=== PATIENT | male | born 1960 | race Caucasian/White ===

== ENCOUNTER 2017-02-11 04:55 | Emergency (ER) | payer MEDICAID, MEDICARE, OTHER ==
[2017-02-11] MEDS ORDERED: LORazepam 2 MG/ML MDV IVPUSH ONE (04:58)
[2017-02-11] MEDS ORDERED: Metoclopramide 10 MG/2 ML SDV IVPUSH ONE (04:58)
[2017-02-11] MEDS ORDERED: Sodium Chloride 0.9% 1,000 ML IV SCH (05:00)
--- NOTE | 2017-02-11 05:06 | EDM.PDOC ---
[id number]: [facility] Time Seen by Provider: 02/11/17 05:01 Source of Information: Reports: Patient, EMS notes reviewed Exam Limitations: Reports: Intoxication (Smells strongly of alcohol) - History of Present Illness INITIAL COMMENTS - FREE TEXT/NARRATIVE: 56-year-old male brought to the ED per local ambulance. Ambulance was summoned to a local home because of a seizure. Mr. Valladares is apparently a patient of the [facility]. He has maxillary sinus cancer which apparently is in remission. . It is unclear at this time why he is in the [facility] program. He seems to be of low mental capacity. Breath smells strongly of alcohol and is some suggestion he's been drinking heavily today which is created his bizarre and abnormal behaviors. Paramedics did not identify any sign of seizure activity. They had some concerns about drug withdrawal. He answers questions appropriately on my asssessment. . States he did have Easter dinner. He admits to drinking alcohol but not to how much. He has not yet gone to bed. Apparently he had been partying with a younger woman who may or may not ,have been offering him street drugs. He apparently has not suffered any fall or trauma. He denies headache or nausea or vomiting. Denies any pain. He does exhibit bizarre behavior with raising his arms above his head in twitching of his eyes etc. on exploration of his past history he was seen through the ED on May 27 where he was identified to have extensive soft tissue mass involving the left frontal sinus that had invaded across to the right frontal sinus it also invaded the medial aspect and superior aspect of his left orbit. This was felt to represent tumor or perhaps aggressive sinus disease. There is also intracranial extension of mass by about 8 mm on the left side. He said previous left-sided craniotomy with changes of encephalomalacia in expect will more than to the left frontal horn of the lateral ventricle. Therefore he may well had a seizure. When he presented to the ED he was in the MRI suite and was felt to suffered a seizure at that date May 27. MRI of the brain had been been performed on the same date. So so he was sent to the [facility] where he underwent extensive surgery to try and remove the tumor from the left frontal sinus and from behind his left eye. 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 It is unclear at this time whether or not he said further seizure activity since surgeries. His medication lists numerous eyedrops for glaucoma. He is not on any antiseizure medications. Onset of Symptoms: Reports: today Symptom Onset Date: 02/11/17 (Fairly symptoms started within the last hour.) Duration of Symptoms: Reports: Hour(s): Severity: moderate Context, Behavioral Health: Reports: other (Suspect intoxication by alcohol and perhaps other drugs.). Denies: living situation, school/work, family dynamics Associated Symptoms: Reports: anxiety. Denies: depression, hallucinations, auditory, homicidal thoughts, hallucinations, visual, insomnia, ingestion:, paranoia, suicidal thought, other Treatments [employer]: Reports: Other (see below) (None.) - SAD Persons Scale (SPS) SPS Sex: Male SPS Age: Between 18-65 Years of Age SPS Depression: No SPS Previous Suicide Attempts: No SPS Alcohol Abuse/Drug Abuse: Yes SPS Rational Thinking Loss: Yes (Because of intoxicants.) SPS Social Support Deficit: No SPS Organized Suicide Plan: No SPS No Spouse/Significant Other: No SPS Sickness: No SPS Sad Person Scale Score: 3 - Related Data Allergies Allergy/AdvReac Type Severity Reaction Status Date / Time No Known Allergies Allergy Verified 02/11/17 05:00 Home Medications: Home Meds Acetaminophen [Mapap] 325 mg PO Q4H PRN 02/11/17 [History] Aspirin [Adult Low Dose Aspirin EC] 81 mg PO DAILY 02/11/17 [History] Bimatoprost [LUMIGAN 0.01% Ophth Soln] 1 drop EYELF BEDTIME 02/11/17 [History] Brimonidine Tartrate/Timolol [Combigan Eye Drops] 1 drop EYELF BID 02/11/17 [ History] Brinzolamide [Azopt 1% Ophth Susp] 1 drop EYELF BID 02/11/17 [History] Erythromycin Base [Erythromycin 0.5% Ophth Oint] 3.5 gm EYELF BEDTIME 02/11/17 [ History] Ibuprofen [Motrin] 200 mg PO Q4H PRN 02/11/17 [History] Loteprednol Etabonate [Lotemax] 1 drop EYELF BID 02/11/17 [History] Ondansetron [Zofran ODT] 8 mg PO Q8H PRN 02/11/17 [History] metFORMIN HCl [Metformin HCl] 500 mg PO BID 02/11/17 [History] Past Medical History - Past Health History Medical/Surgical History: Denies Medical/Surgical History HEENT History: Reports: Glaucoma (Left eye), Impaired vision (Legally blind left eye), Other (see below) (Fairly have left maxillary sinus carcinoma. This required vigorous reconstruction of the sinus removal of the tumor. It has affected his left eyesight. He has had surgery in his left eye as well. Vision is very poor in this side.) Oncologic (Cancer) History: Reports: Squamous cell carcinoma (Apparently had a form of squamous cell carcinoma involving the left frontal sinus that it invaded the retro-orbital space on the left side as well as into the right frontal sinus. Was also invading into the intracranial cavity by about 8 mm at the time of discovery May [id number].) Social & Family History - Tobacco Use Smoking Status *Q: Current Every Day Smoker Years of Tobacco use: 30 Packs/Tins Daily: 1 - Alcohol Use Days Per Week of Alcohol Use: 0 Number of Drinks Per Day: 1 Total Drinks Per Week: 0 - Recreational Drug Use Recreational Drug Use: No - Living Situation & Occupation Living situation: Reports: single Occupation: unemployed ED ROS GENERAL - Review of Systems Review Of Systems: See Below Constitutional: Reports: fatigue. Denies: fever, chills, malaise, weakness, decreased appetite, weight loss HEENT: Reports: Other (Legally blind left eye). Denies: Eye discharge, Eye pain , Glasses, Hearing loss, Nosebleed, Nose pain, Rhinitis, Sinus problem, Throat pain, Throat swelling, Vertigo Respiratory: Reports: Shortness of Breath, Cough. Denies: Wheezing, Sputum, Hemoptysis, Other Cardiovascular: Reports: Chest pain (Occasionally productive.), Lightheadedness , Palpitations (Sometimes). Denies: Blood pressure problem, Claudication, Dyspnea on exertion, Edema, Orthopnea Endocrine: Reports: fatigue, other (Fairly is a type II diabetic. Controlled with oral meds) GI/Abdominal: Denies: Abdominal pain, Anorexia, Black stool, Bloody stool, Constipation, Diarrhea, Decreased appetite, Difficulty swallowing, Distension, Flatus, Hematemesis, Hematochezia : Reports: frequency Musculoskeletal: Reports: back pain Skin: Reports: no symptoms Neurological: Reports: Dizziness, Difficulty Walking (Due to intoxication at this time), Gait Disturbance (Ataxic gait today.). Denies: Headache, Numbness, Seizure, Syncope, Tingling, Tremors, Weakness, Change in Speech Psychiatric: Reports: Agitation, Anxiety, Confusion, Mood lability. Denies: Hallucinations, Homicidal ideation, Suicidal ideation Hematologic/Lymphatic: Reports: easy bruising Immunologic: Reports: no symptoms ED EXAM, BEHAVIORAL HEALTH - Physical Exam Exam: See Below Exam Limited By: Intoxication (Strong smell of alcohol in his breath.) General Appearance: other (Left conjunctiva is extremely red and he reports recent surgery using drops in the side. He is blind in the side.) Eye Exam: right eye: normal inspection, left eye: conjunctival injection ( Severe. Legally blind in his side.), bilateral eye: nystagmus (Bilateral lateral gaze.) Ears: normal TMs Throat/Mouth: Normal inspection, Normal oropharynx, Other (Diffusely erythematous throat. Tongue is mildly dry.) Head: atraumatic, normocephalic Neck: normal inspection, supple, non-tender, full range of motion. No: carotid bruit, lymphadenopathy (L), lymphadenopathy (R) Respiratory/Chest: no respiratory distress, lungs clear, normal breath sounds, no accessory muscle use Cardiovascular: normal peripheral pulses, regular rate, rhythm, no edema, no gallop, no murmur, no rub GI/Abdominal: normal bowel sounds, soft, non tender, no organomegaly Back Exam: normal inspection, full range of motion. No: CVA tenderness (L), CVA tenderness (R) Extremities: normal inspection, normal range of motion, non-tender, no pedal edema, normal capillary refill, other (No evidence of recent fall or injuries.) Neurological: alert, normal mood/affect, CN II-XII intact, normal cognition, normal reflexes, no motor/sensory deficits. No: normal gait, oriented x 3 (Not oriented to time.) Psychiatric: alert, normal affect, restless. No: uncooperative, withdrawn, flight of ideas, homicidal thoughts, jain delusions, suicidal plan, suicidal thoughts, tangential thoughts, auditory hallucinations, visual hallucinations, grandiose thoughts, paranoid thoughts, threatening behavior, other Skin Exam: Warm, Intact, Normal color, No rash COURSE, BEHAVIORAL HEALTH COMP - Course Vital Signs: Last Vital Signs Temp 36.2 C 02/11/17 04:57 Pulse 66 02/11/17 08:30 Resp 16 02/11/17 08:30 BP 130/87 02/11/17 08:30 Pulse Ox 99 02/11/17 08:30 Orders, Labs, Meds: Laboratory Tests 02/11/17 02/11/17 02/11/17 Range/Units 05:05 05:10 05:10 WBC 10.51 H (4.23-9.07) K/mm3 RBC 5.68 (4.63-6.08) M/mm3 Hgb 15.9 (13.7-17.5) gm/L Hct 47.5 (40.1-51.0) % MCV 83.6 (79.0-92.2) fl MCH 28.0 (25.7-32.2) pg MCHC 33.5 (32.2-35.5) g/dl RDW Std Deviation 41.9 (35.1-43.9) fL Plt Count 299 (163-337) K/mm3 MPV 9.4 (9.4-12.3) fl Neutrophils % (Manual) 43 (40-60) % Band Neutrophils % 0 (0-10) % Lymphocytes % (Manual) 46 H (20-40) % Atypical Lymphs % 0 % Monocytes % (Manual) 6 (2-10) % Eosinophils % (Manual) 4 (0.8-7.0) % Basophils % (Manual) 1 (0.2-1.2) Platelet Estimate Adequate Plt Morphology Comment Normal RBC Morph Comment Normal PT (8.0-13.0) SECONDS INR Sodium 144 (136-145) mEq/L Potassium 3.7 (3.5-5.1) mEq/L Chloride 106 (98-107) mEq/L Carbon Dioxide 24 (21-32) mEq/L Anion Gap 17.7 H (5-15) BUN 10 (7-18) mg/dL Creatinine 1.0 (0.7-1.3) mg/dL Est Cr Clr Drug Dosing 88.90 mL/min Estimated GFR (MDRD) > 60 (>60) mL/min BUN/Creatinine Ratio 10.0 L (14-18) Glucose 143 H (74-106) mg/dL POC Glucose 138 H (70-105) mg/dL Calcium 9.6 (8.5-10.1) mg/dL Magnesium 2.1 (1.8-2.4) mg/dl Total Bilirubin 0.3 (0.2-1.0) mg/dL AST 11 L (15-37) U/L ALT 21 (16-63) U/L Alkaline Phosphatase 105 (46-116) U/L Troponin I (0.00-0.056) ng/mL C-Reactive Protein 0.3 (<1.0) mg/dL Total Protein 7.8 (6.4-8.2) g/dl Albumin 4.3 (3.4-5.0) g/dl Globulin 3.5 gm/dL Albumin/Globulin Ratio 1.2 (1-2) Urine Color (Yellow) Urine Appearance (Clear) Urine pH (5.0-8.0) Ur Specific [place] (1.005-1.030) Urine Protein (Negative) Urine Glucose (UA) (Negative) Urine Ketones (Negative) Urine Occult Blood (Negative) Urine Nitrite (Negative) Urine Bilirubin (Negative) Urine Urobilinogen (0.2-1.0) Ur Leukocyte Esterase (Negative) Urine Opiates Screen (NEGATIVE) Ur Buprenorphine Scrn (NEGATIVE) Ur Oxycodone Screen (NEGATIVE) Urine Methadone Screen (NEGATIVE) Ur Propoxyphene Screen (NEGATIVE) Ur Barbiturates Screen (NEGATIVE) Ur Tricyclics Screen (NEGATIVE) Ur Phencyclidine Scrn (NEGATIVE) Ur Amphetamine Screen (NEGATIVE) U Methamphetamines Scrn (NEGATIVE) U Benzodiazepines Scrn (NEGATIVE) U Cocaine Metab Screen (NEGATIVE) U Marijuana (THC) Screen (NEGATIVE) Ethyl Alcohol 0.11 (0.00) gm% Ketones (0.0-0.3) mM 02/11/17 02/11/17 02/11/17 Range/Units 05:10 05:10 05:10 WBC (4.23-9.07) K/mm3 RBC (4.63-6.08) M/mm3 Hgb (13.7-17.5) gm/L Hct (40.1-51.0) % MCV (79.0-92.2) fl MCH (25.7-32.2) pg MCHC (32.2-35.5) g/dl RDW Std Deviation (35.1-43.9) fL Plt Count (163-337) K/mm3 MPV (9.4-12.3) fl Neutrophils % (Manual) (40-60) % Band Neutrophils % (0-10) % Lymphocytes % (Manual) (20-40) % Atypical Lymphs % % Monocytes % (Manual) (2-10) % Eosinophils % (Manual) (0.8-7.0) % Basophils % (Manual) (0.2-1.2) Platelet Estimate Plt Morphology Comment RBC Morph Comment PT 9.7 (8.0-13.0) SECONDS INR 0.90 Sodium (136-145) mEq/L Potassium (3.5-5.1) mEq/L Chloride (98-107) mEq/L Carbon Dioxide (21-32) mEq/L Anion Gap (5-15) BUN (7-18) mg/dL Creatinine (0.7-1.3) mg/dL Est Cr Clr Drug Dosing mL/min Estimated GFR (MDRD) (>60) mL/min BUN/Creatinine Ratio (14-18) Glucose (74-106) mg/dL POC Glucose (70-105) mg/dL Calcium (8.5-10.1) mg/dL Magnesium (1.8-2.4) mg/dl Total Bilirubin (0.2-1.0) mg/dL AST (15-37) U/L ALT (16-63) U/L Alkaline Phosphatase (46-116) U/L Troponin I (0.00-0.056) ng/mL C-Reactive Protein (<1.0) mg/dL Total Protein (6.4-8.2) g/dl Albumin (3.4-5.0) g/dl Globulin gm/dL Albumin/Globulin Ratio (1-2) Urine Color Yellow (Yellow) Urine Appearance Clear (Clear) Urine pH 7.0 (5.0-8.0) Ur Specific [place] 1.015 (1.005-1.030) Urine Protein Negative (Negative) Urine Glucose (UA) Negative (Negative) Urine Ketones Negative (Negative) Urine Occult Blood Trace-intact H (Negative) Urine Nitrite Negative (Negative) Urine Bilirubin Negative (Negative) Urine Urobilinogen 0.2 (0.2-1.0) Ur Leukocyte Esterase Negative (Negative) Urine Opiates Screen Negative (NEGATIVE) Ur Buprenorphine Scrn Negative (NEGATIVE) Ur Oxycodone Screen Negative (NEGATIVE) Urine Methadone Screen Negative (NEGATIVE) Ur Propoxyphene Screen Negative (NEGATIVE) Ur Barbiturates Screen Negative (NEGATIVE) Ur Tricyclics Screen Negative (NEGATIVE) Ur Phencyclidine Scrn Negative (NEGATIVE) Ur Amphetamine Screen Negative (NEGATIVE) U Methamphetamines Scrn Negative (NEGATIVE) U Benzodiazepines Scrn Negative (NEGATIVE) U Cocaine Metab Screen Negative (NEGATIVE) U Marijuana (THC) Screen Negative (NEGATIVE) Ethyl Alcohol (0.00) gm% Ketones (0.0-0.3) mM 02/11/17 02/11/17 Range/Units 05:10 05:10 WBC (4.23-9.07) K/mm3 RBC (4.63-6.08) M/mm3 Hgb (13.7-17.5) gm/L Hct (40.1-51.0) % MCV (79.0-92.2) fl MCH (25.7-32.2) pg MCHC (32.2-35.5) g/dl RDW Std Deviation (35.1-43.9) fL Plt Count (163-337) K/mm3 MPV (9.4-12.3) fl Neutrophils % (Manual) (40-60) % Band Neutrophils % (0-10) % Lymphocytes % (Manual) (20-40) % Atypical Lymphs % % Monocytes % (Manual) (2-10) % Eosinophils % (Manual) (0.8-7.0) % Basophils % (Manual) (0.2-1.2) Platelet Estimate Plt Morphology Comment RBC Morph Comment PT (8.0-13.0) SECONDS INR Sodium (136-145) mEq/L Potassium (3.5-5.1) mEq/L Chloride (98-107) mEq/L Carbon Dioxide (21-32) mEq/L Anion Gap (5-15) BUN (7-18) mg/dL Creatinine (0.7-1.3) mg/dL Est Cr Clr Drug Dosing mL/min Estimated GFR (MDRD) (>60) mL/min BUN/Creatinine Ratio (14-18) Glucose (74-106) mg/dL POC Glucose (70-105) mg/dL Calcium (8.5-10.1) mg/dL Magnesium (1.8-2.4) mg/dl Total Bilirubin (0.2-1.0) mg/dL AST (15-37) U/L ALT (16-63) U/L Alkaline Phosphatase (46-116) U/L Troponin I < 0.017 (0.00-0.056) ng/mL C-Reactive Protein (<1.0) mg/dL Total Protein (6.4-8.2) g/dl Albumin (3.4-5.0) g/dl Globulin gm/dL Albumin/Globulin Ratio (1-2) Urine Color (Yellow) Urine Appearance (Clear) Urine pH (5.0-8.0) Ur Specific [place] (1.005-1.030) Urine Protein (Negative) Urine Glucose (UA) (Negative) Urine Ketones (Negative) Urine Occult Blood (Negative) Urine Nitrite (Negative) Urine Bilirubin (Negative) Urine Urobilinogen (0.2-1.0) Ur Leukocyte Esterase (Negative) Urine Opiates Screen (NEGATIVE) Ur Buprenorphine Scrn (NEGATIVE) Ur Oxycodone Screen (NEGATIVE) Urine Methadone Screen (NEGATIVE) Ur Propoxyphene Screen (NEGATIVE) Ur Barbiturates Screen (NEGATIVE) Ur Tricyclics Screen (NEGATIVE) Ur Phencyclidine Scrn (NEGATIVE) Ur Amphetamine Screen (NEGATIVE) U Methamphetamines Scrn (NEGATIVE) U Benzodiazepines Scrn (NEGATIVE) U Cocaine Metab Screen (NEGATIVE) U Marijuana (THC) Screen (NEGATIVE) Ethyl Alcohol (0.00) gm% Ketones 0.16 (0.0-0.3) mM Medications Discontinued Medications Generic Name Dose Route Start Last Admin Trade Name Freq PRN Reason Stop Dose Admin Sodium Chloride 1,000 mls @ 250 mls/hr 02/11/17 05:00 02/11/17 06:05 Normal Saline IV 500 mls/hr ASDIRECTED LESLY Infusion Sodium Chloride 1,000 mls @ 500 mls/hr 02/11/17 06:00 Normal Saline IV 02/11/17 07:59 ONETIME ONE Lorazepam 1.5 mg 02/11/17 04:58 02/11/17 05:15 Ativan IVPUSH 02/11/17 04:59 1.5 mg ONETIME ONE Administration Metoclopramide HCl 7.5 mg 02/11/17 04:58 02/11/17 05:15 Reglan IVPUSH 02/11/17 04:59 7.5 mg ONETIME ONE Administration Re-Assessment/Re-Exam: 56-year-old male brought to the ED per local ambulance after being summoned to the way home with reported male having a seizure. No seizure activity was appreciated by travel med surg rn staff. He appreciated him to be intoxicated by alcohol and perhaps other intoxicants. His behavior was quite audible. There is some suspicion that he may be going through withdrawal. However he has fresh alcohol on his breath. He appears primarily intoxicated by alcohol. Fairly is a type II diabetic controlled with metformin. Plan bedside blood sugar be done. IV will be normal saline at 150 mils per hour . Given Ativan 1.5 mg IV and Reglan 7.5 mg IV. Routine lab draw. Your will be collected for drug screen. I dug into his past history and he has had it sounds like squamous cell carcinoma of that started in his left frontal sinus that invaded across into the right frontal sinus as well as into the intracranial vault through the superior aspect of the frontal sinus and also inferiorly into the retro-orbital space on the left side. He went to the [facility] for definitive surgery back in early May of 2015 when the mass was discovered. At present he has glaucoma of the left eye and is legally blind. He is not listed to be on any antiseizure medications. Will write with results of blood tests. Re-Assessment/Re-Exam Date: 02/11/17 (0600 hours labs are back revealing normal white count at 10.51 with 43% neutrophils and 46% lymphocytes. Hemoglobin is 15.9 hematocrit of 47.5 suggesting a mild hemoconcentration component. Platelets 209,000. Chemistry is sodium 144 potassium 3.7. Portable 6 bicarbonate is 24 anion gap is elevated at 17.7 glucose 143. Blood alcohol currently a 0.11 g percent. Urinalysis is normal other than a few red cells. Urine drug screen is negative. Patient appears to be simply overtired and intoxicated by alcohol. I will increase his IV to 500 mils per hour in an effort to improve his anion gap. He will remain in the emergency room until he is walking and talking which will be 3 hours or so) Departure - Departure Time of Disposition: 08:30 Disposition: Home, Self-Care 01 Condition: fair Clinical Impression: Alcoholic ketosis Acute alcohol intoxication Qualifiers: Complication of substance-induced condition: uncomplicated Qualified Code(s): F10.120 - Alcohol abuse with intoxication, uncomplicated Instructions: Alcohol Intoxication, [id number] Referrals: PCP,Not In Area [Primary Care Provider] - Forms: ED Department Discharge Additional Instructions: Evaluation in the emergency room this morning due to to her complaints of some chest discomfort and then apparently passing out while in the seated position in the wee hours of the morning. The annulus was summoned because of suspect seizure activity by your friends. However no seizure activity is evident. It appears that he simply passed out after standing up so late in the morning and with alcohol on board. The only abnormalities identified were an elevated blood alcohol level and evidence of a metabolic acidosis from alcohol use. You were treated in the ED with intravenous fluids to provide rehydration and medication to settle the stomach. Home to rest sleep and advise no further alcohol use for at least the next 3 days. may resume normal diet when able. Plenty of fluids today such as Gatorade or Powerade to maintain hydration. May continue all current medications.
[2017-02-11] MEDS ORDERED: Sodium Chloride 0.9% 1,000 ML IV ONE (06:00)
[2017-02-11 08:56] VITALS: BP 130/87
== END 2017-02-11 08:45 | disposition home or self-care (01) ==
LOC: JD.ED 04:55
DX: F10.120 Alcohol abuse with intoxication, uncomplicated (principal); F17.210 Nicotine dependence, cigarettes, uncomplicated; E88.89 Other specified metabolic disorders; Z79.82 Long term (current) use of aspirin; Z79.899 Other long term (current) drug therapy; Z79.84 Long term (current) use of oral hypoglycemic drugs
CPT/HCPCS: 36415; 80053; 80306; 81003; 82009; 82962; 83735; 84484; 85025; 85610; 86140; 96361; 96374; 96375; 99285; G0480; J2060; J2765; J7040; 99284

== ENCOUNTER 2017-03-26 12:47 | Emergency (ER) | payer OTHER ==
[2017-03-26] MEDS ORDERED: LORazepam 2 MG/ML MDV IVPUSH ONE (12:52)
[2017-03-26] MEDS ORDERED: levETIRAcetam 500 MG in Sodium Chloride 0.9% 100 ML IV ONE (12:53)
--- NOTE | 2017-03-26 12:56 | EDM.PDOC ---
ED HPI GENERAL MEDICAL PROBLEM - General Chief Complaint: Neuro Symptoms/Deficits Stated Complaint: [facility] Time Seen by Provider: 03/26/17 12:51 Source of Information: Reports: Patient, EMS History Limitations: Reports: Altered Mental Status - History of Present Illness INITIAL COMMENTS - FREE TEXT/NARRATIVE: 56-year-old male brought to the ED from [facility] where he was in the CT scanner suite having maxillofacial sinuses performed. Apparently suffered a eizure but no one was able to describe what happened exactly. The patient of course has no recollection of what has happened to him. This suggests a grand mal convulsion occurred. Paramedics were called and they identified him to be twitching bilaterally. No focal neurological deficit. He is postictal for the first 15-20 minutes before he did speak. He remains mildly confused on initial assessment. He has no recollection of what has happened to him. He has no history of seizure disorder. Onset: Sudden Onset Date: 03/26/17 Onset Time: 12:25 Duration: Minutes:, Resolved Prior to Arrival Location: Reports: Generalized Severity: Moderate Improves with: Reports: None Context: Denies: Activity, Exercise, Lifting, Sick Contact, Trauma, Other Associated Symptoms: Reports: Confusion, Headaches, Malaise, Weakness. 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: Other (see below) - Related Data Allergies Allergy/AdvReac Type Severity Reaction Status Date / Time No Known Allergies Allergy Verified 02/11/17 05:00 Home Meds: Home Meds Acetaminophen [Mapap] 325 mg PO Q4H PRN 02/11/17 [History] Aspirin [Adult Low Dose Aspirin EC] 81 mg PO DAILY 02/11/17 [History] Bimatoprost [LUMIGAN 0.01% Ophth Soln] 1 drop EYELF BEDTIME 02/11/17 [History] Brimonidine Tartrate/Timolol [Combigan Eye Drops] 1 drop EYELF BID 02/11/17 [ History] Brinzolamide [Azopt 1% Ophth Susp] 1 drop EYELF BID 02/11/17 [History] Erythromycin Base [Erythromycin 0.5% Ophth Oint] 3.5 gm EYELF BEDTIME 02/11/17 [ History] Ibuprofen [Motrin] 200 mg PO Q4H PRN 02/11/17 [History] Loteprednol Etabonate [Lotemax] 1 drop EYELF BID 02/11/17 [History] Ondansetron [Zofran ODT] 8 mg PO Q8H PRN 02/11/17 [History] metFORMIN HCl [Metformin HCl] 500 mg PO BID 02/11/17 [History] levETIRAcetam [Keppra] 500 mg PO BID #60 tablet 03/26/17 [Rx] Past Medical History - Past Health History Medical/Surgical History: Denies Medical/Surgical History HEENT History: Reports: Glaucoma, Impaired Vision, Other (See Below) Endocrine/Metabolic History: Reports: Diabetes, Type II Oncologic (Cancer) History: Reports: Squamous Cell Carcinoma Other Oncologic History: sinus - Past Surgical History HEENT Surgical History: Reports: Naso-Sinus Surgery Social & Family History - Tobacco Use Smoking Status *Q: Current Every Day Smoker Years of Tobacco use: 30 Packs/Tins Daily: 1 - Alcohol Use Days Per Week of Alcohol Use: 0 Number of Drinks Per Day: 1 Total Drinks Per Week: 0 - Recreational Drug Use Recreational Drug Use: No - Living Situation & Occupation Living situation: Reports: Single Occupation: Unemployed ED ROS GENERAL - Review of Systems Review Of Systems: See Below Constitutional: Reports: Malaise, Weakness, Fatigue. Denies: Fever, Chills, Weight Loss HEENT: Reports: No Symptoms Respiratory: Reports: No Symptoms Cardiovascular: Reports: No Symptoms Endocrine: Reports: Fatigue GI/Abdominal: Reports: No Symptoms : Reports: No Symptoms Musculoskeletal: Reports: No Symptoms Skin: Reports: No Symptoms Neurological: Reports: No Symptoms Psychiatric: Reports: No Symptoms Hematologic/Lymphatic: Reports: No Symptoms - Physical Exam Exam: See Below Exam Limited By: Altered Mental Status (Mildly confused.) General Appearance: WD/WN, No Apparent Distress, Other Eye Exam: Bilateral Eye: Normal Inspection, PERRL Throat/Mouth: Normal Inspection, Normal Lips, Normal Oropharynx, Other Head Exam: Atraumatic, Normocephalic (Notice that he bit his tongue.) Neck: Normal Inspection, Supple, Non-Tender, Full Range of Motion Respiratory/Chest: No Respiratory Distress, Lungs Clear, Normal Breath Sounds, No Accessory Muscle Use, Wheezing Cardiovascular: Normal Peripheral Pulses (Occasional expiratory wheezes.), Regular Rate, Rhythm, No Edema, No Gallop, No Murmur GI/Abdominal: Normal Bowel Sounds, Soft, Non-Tender, No Organomegaly Neuro Exam (Abbreviated): CN II-XII Intact, Normal Reflexes, No Motor/Sensory Deficits, Other ([id number]. Normal attending psychiatrist strength normal upper and lower motor power tone and strength.). No: Oriented, Normal Cognition (Mildly continue) DTR: 0: Achilles (R), Achilles (L), 1+: Patella (R), Patella (L), 2+: Bicep (R) , Bicep (L) Back Exam: Normal Inspection, Full Range of Motion Extremities: Normal Inspection, Normal Range of Motion, Non-Tender, Normal Capillary Refill Psychiatric: Normal Affect, Normal Mood Skin Exam: Warm, Dry, Intact, Normal Color, No Rash Course - Vital Signs Last Recorded V/S: Last Vital Signs Temp 37.1 C 03/26/17 12:52 Pulse 63 03/26/17 12:52 Resp 16 03/26/17 12:52 BP 142/97 H 03/26/17 12:52 Pulse Ox 94 L 03/26/17 12:52 - Orders/Labs/Meds Orders: Active Orders 24 hr Category Date Time Status Dextrose 5%-0.9% NaCl [Dextrose 5%-Normal Saline] 1,000 Med 03/26/17 13:00 Active ml IV ASDIRECTED Medication Orders Dextrose/Sodium Chloride (Dextrose 5%-Normal Saline) 1,000 mls @ 150 mls/hr IV ASDIRECTED LESLY Last Admin: 03/26/17 13:48 Dose: 150 mls/hr Labs: Laboratory Tests 03/26/17 03/26/17 Range/Units 13:15 13:15 WBC 8.88 (4.23-9.07) K/mm3 RBC 5.68 (4.63-6.08) M/mm3 Hgb 15.7 (13.7-17.5) gm/L Hct 47.1 (40.1-51.0) % MCV 82.9 (79.0-92.2) fl MCH 27.6 (25.7-32.2) pg MCHC 33.3 (32.2-35.5) g/dl RDW Std Deviation 41.2 (35.1-43.9) fL Plt Count 285 (163-337) K/mm3 MPV 9.7 (9.4-12.3) fl Neutrophils % (Manual) 70 H (40-60) % Band Neutrophils % 0 (0-10) % Lymphocytes % (Manual) 18 L (20-40) % Atypical Lymphs % 0 % Monocytes % (Manual) 6 (2-10) % Eosinophils % (Manual) 6 (0.8-7.0) % Basophils % (Manual) 0 L (0.2-1.2) Platelet Estimate Adequate RBC Morph Comment Normal Sodium 140 (136-145) mEq/L Potassium 3.9 (3.5-5.1) mEq/L Chloride 105 (98-107) mEq/L Carbon Dioxide 24 (21-32) mEq/L Anion Gap 14.9 (5-15) BUN 13 (7-18) mg/dL Creatinine 1.1 (0.7-1.3) mg/dL Est Cr Clr Drug Dosing 78.35 mL/min Estimated GFR (MDRD) > 60 (>60) mL/min BUN/Creatinine Ratio 11.8 L (14-18) Glucose 124 H (74-106) mg/dL Calcium 9.1 (8.5-10.1) mg/dL Total Bilirubin 0.6 (0.2-1.0) mg/dL AST 10 L (15-37) U/L ALT 18 (16-63) U/L Alkaline Phosphatase 101 (46-116) U/L Total Protein 7.7 (6.4-8.2) g/dl Albumin 4.0 (3.4-5.0) g/dl Globulin 3.7 gm/dL Albumin/Globulin Ratio 1.1 (1-2) Ethyl Alcohol 0.00 (0.00) gm% Meds: Medications Generic Name Dose Route Start Last Admin Trade Name Freq PRN Reason Stop Dose Admin Dextrose/Sodium Chloride 1,000 mls @ 150 mls/hr 03/26/17 13:00 03/26/17 13:48 Dextrose 5%-Normal Saline IV 150 mls/hr ASDIRECTED LESLY Administration Discontinued Medications Generic Name Dose Route Start Last Admin Trade Name Freq PRN Reason Stop Dose Admin Levetiracetam 500 mg/ Sodium 105 mls @ 400 mls/hr 03/26/17 12:53 03/26/17 13: 19 Chloride IV 03/26/17 13:07 400 mls/hr ONETIME ONE Administration Lorazepam 1 mg 03/26/17 12:52 03/26/17 13:16 Ativan IVPUSH 03/26/17 12:53 1 mg ONETIME ONE Administration - Radiology Interpretation Free Text/Narrative:: 56-year-old male sent to the ED from [facility] where apparently he suffered a grand mal convulsion while in the CT scanner suite. He was having CT of his maxillofacial sinuses due to concern for possible malignancy in his nose. Apparently he has not however had a seizure before. He was postictal for a good 15-20 minutes before he can speak and interact with the paramedics normally. They tried to establish an IV x3 but were unsuccessful he is therefore not received any medications. Unclear how long the seizure lasted. 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 Therefore it is a mistake that there was a problem with his nose. Lab work sent over was reviewed and is all within normal limits. This included a blood sugar of 117 although he is on metformin for type 2 diabetes control. Plan :Ativan 1 mg IV followed by Keppra [address] of the brain and maxillofacial sinuses will be done in the ED. - Re-Assessments/Exams Free Text/Narrative Re-Assessment/Exam: 03/26/17 14:25 labs are completely normal including liver function studies. CT of the head reveals a destructive soft tissue mass noted on previous stays within the medial left orbit and within the frontal sinus with very slight intracranial extension this finding has significantly improved on this exam ventricles along the basal cisterns and sulci over the convexities are moderately prominent there is narrowing of encephalomalacia causing eczema back you'll enlargement of the frontal horn of the left lateral ventricle which is a stable finding calcification is seen extra-axially with both within both frontal lobes with him which remain stable stable destruction of the inner table of the left side of the sphenoid sinus is seen was no evidence of any intracranial hemorrhage or midline shift or mass effect. CT of the maxillofacial sinuses showed soft tissue density in the left side of the left frontal sinus previous surgery destruction of the inner table of the frontal sinus is seen to the midline and to the left side which is stable soft tissue fullness is seen within the medial left orbit which is diminished in amount from previous exam there is some old destruction seen within the medial superior orbital rim on the left side in this area of soft tissue density Al's nasal septal deviation is seen minimal fluid is seen within the right maxillary sinus. 03/26/17 14:29 I will speak with the industrial technology education teacher or least somebody that witnessed this seizure at [place] so that we can decide what medication patient needs to prevent further seizure activity. 03/26/17 15:00 patient's mother is here now and indicates that dentist did in fact have a seizure prior at the onset of this illness when the tumor was found. I'm going to there for placement Keppra 500 mg twice daily a.m. and p.m. as seizure prophylaxis. It is not drive a motor vehicle did to his poor eyesight. Departure - Departure Time of Disposition: 15:01 Disposition: Home, Self-Care 01 Condition: fair Clinical Impression: New onset seizure - Discharge Information Prescriptions: levETIRAcetam [Keppra] 500 mg PO BID #60 tablet Additional Instructions: Evaluation imaging today in regards to new onset seizure while in the CT suite at [place] today. From what I can gather this was a grand mal convulsion which means loss of consciousness with tonic clonic movements. The previous surgeries and radiation to the brain and neoplasm behind the left eye certainly place her at risk of seizure recurrence. CT of the head and maxillofacial bones reveals an improvement in this soft tissue mass previously identified on CT scan exam here. However this is her second seizure recurrence and therefore medication is advised to prevent seizures from occurring. Suggest starting Keppra 500 mg twice daily morning and bedtime to try and prevent further seizure recurrence. Followup with her personal care provider in 3 weeks time. - My Orders Last 24 Hours: My Active Orders 03/26/17 13:00 Dextrose 5%-0.9% NaCl [Dextrose 5%-Normal Saline] 1,000 ml IV ASDIRECTED - Assessment/Plan Last 24 Hours: My Active Orders 03/26/17 13:00 Dextrose 5%-0.9% NaCl [Dextrose 5%-Normal Saline] 1,000 ml IV ASDIRECTED
[2017-03-26] MEDS ORDERED: Dextrose 5%-0.9% NaCl 1,000 ML IV SCH (13:00)
--- NOTE | 2017-03-26 14:04 | CT ---
CT paranasal sinuses Technique: Multiple axial sections through the brain were obtained. Intravenous contrast not utilized. Comparison: Previous head CT exam of 05/27/15. Findings: Mild mucosal thickening is seen within the left maxillary sinus. Soft tissue density is seen to the left side of the left frontal sinus. Previous surgery or destruction of the inner table of the frontal sinus is seen to the midline and to the left side which is stable. Soft tissue fullness is seen within the medial left orbit which is diminished in amount from previous exam. There is some old destruction seen within the medial superior orbital rim on the left side in this area of soft tissue density. Mild nasal septal deviation is seen. Minimal fluid seen within the right maxillary sinus.. Impression: 1. Soft tissue fullness within the medial left orbit which has diminished in amount from prior head CT exam. 2. Mild mucosal thickening within the left maxillary sinus. Soft tissue fullness identified within the left frontal sinus. Absence of the inner table of the frontal sinus seen which appears stable from old head CT study. 3. Old destruction of the medial superior left orbital rim. 4. Minimal air-fluid level within the right maxillary sinus. 5. I do not suspect that there is any definite acute process present. Diagnostic code #9
--- NOTE | 2017-03-26 14:07 | CT ---
Head CT Technique: Multiple axial sections through the brain were obtained. Intravenous contrast was not utilized. Comparison: Previous CT exam of 05/27/15. Findings: Destructive soft tissue mass that was noted on prior study within the medial left orbit and within the frontal sinus with very slight intracranial extension. This finding has significantly improved on previous exam. Ventricles along with basal cisterns and sulci over the convexities are moderately prominent. There is narrowing of encephalomalacia causing ex vacuole enlargement of the frontal horn of the left lateral ventricle which is stable. Calcification is seen extra-axially within both frontal lobes which remains stable. Stable destruction of the inner table of the left side of the sphenoid sinus is seen. There is no evidence of intracranial hemorrhage. No midline shift is seen. Impression: 1. Previous destructive soft tissue mass has significantly improved on current exam. 2. Prominent extra-axial calcification within both frontal lobes which appears stable from prior exam. 3. Senescent change as noted above. 4. Nothing acute is definitely appreciated on noncontrast head CT study. Diagnostic code #3
[2017-03-26 15:48] VITALS: BP 121/94
== END 2017-03-26 15:45 | disposition home or self-care (01) ==
LOC: JD.ED 12:47
DX: R56.9 Unspecified convulsions (principal); E11.9 Type 2 diabetes mellitus without complications; F17.210 Nicotine dependence, cigarettes, uncomplicated; Z79.82 Long term (current) use of aspirin; Z79.899 Other long term (current) drug therapy
CPT/HCPCS: 36415; 70450; 70486; 80053; 85025; 96361; 96365; 96375; 99285; G0480; J1953; J2060; J7030; J7042; 99284

== ENCOUNTER 2017-05-03 02:29 | Emergency (ER) | payer OTHER ==
[2017-05-03 02:40] VITALS: BP 142/98
--- NOTE | 2017-05-03 02:49 | EDM.PDOC ---
ED HPI GENERAL MEDICAL PROBLEM - General Chief Complaint: Upper Extremity Injury/Pain Stated Complaint: BUMP ON SHOULDER Time Seen by Provider: 05/03/17 02:43 - History of Present Illness INITIAL COMMENTS - FREE TEXT/NARRATIVE: 56-year-old male presents emergency room with a right shoulder injury. Shortly before arrival patient was walking around patient's house and he tripped over a drain downspout. He bumped his right shoulder. He noticed a bump on this area as did a friend of his. He does not have severe pain with this he has some mild discomfort. He has good range of motion of his arm and the medial range of motion seems to be pain free. Patient denies any other injury with this fall he did not hit his head. Right Shoulder Pain Score (Numeric/FACES): 2 - Related Data Allergies Allergy/AdvReac Type Severity Reaction Status Date / Time No Known Allergies Allergy Verified 05/03/17 02:40 Home Meds: Home Meds Acetaminophen [Mapap] 325 mg PO Q4H PRN 02/11/17 [History] Aspirin [Adult Low Dose Aspirin EC] 81 mg PO DAILY 02/11/17 [History] Bimatoprost [LUMIGAN 0.01% Ophth Soln] 1 drop EYELF BEDTIME 02/11/17 [History] Brimonidine Tartrate/Timolol [Combigan Eye Drops] 1 drop EYELF BID 02/11/17 [ History] Brinzolamide [Azopt 1% Ophth Susp] 1 drop EYELF BID 02/11/17 [History] Erythromycin Base [Erythromycin 0.5% Ophth Oint] 3.5 gm EYELF BEDTIME 02/11/17 [ History] Ibuprofen [Motrin] 200 mg PO Q4H PRN 02/11/17 [History] Loteprednol Etabonate [Lotemax] 1 drop EYELF BID 02/11/17 [History] Ondansetron [Zofran ODT] 8 mg PO Q8H PRN 02/11/17 [History] metFORMIN HCl [Metformin HCl] 500 mg PO BID 02/11/17 [History] levETIRAcetam [Keppra] 500 mg PO BID #60 tablet 03/26/17 [Rx] Past Medical History - Past Health History Medical/Surgical History: Denies Medical/Surgical History HEENT History: Reports: Glaucoma, Impaired Vision, Other (See Below) Endocrine/Metabolic History: Reports: Diabetes, Type II Oncologic (Cancer) History: Reports: Squamous Cell Carcinoma Other Oncologic History: sinus - Past Surgical History HEENT Surgical History: Reports: Naso-Sinus Surgery Social & Family History - Family History Family Medical History: Unobtainable - Tobacco Use Smoking Status *Q: Current Every Day Smoker Years of Tobacco use: 40 Packs/Tins Daily: 1 - Caffeine Use Caffeine Use: Reports: Soda - Alcohol Use Days Per Week of Alcohol Use: 0 Number of Drinks Per Day: 1 Total Drinks Per Week: 0 - Recreational Drug Use Recreational Drug Use: No - Living Situation & Occupation Living situation: Reports: Single Occupation: Unemployed Review of Systems - Review of Systems Review Of Systems: See Below Constitutional: Reports: No Symptoms Respiratory: Reports: No Symptoms Cardiovascular: Reports: No Symptoms GI/Abdominal: Reports: No Symptoms ED EXAM, GENERAL - Physical Exam Exam: See Below Exam Limited By: No Limitations General Appearance: Alert, No Apparent Distress Head: Atraumatic, Normocephalic Neck: Normal Inspection, Supple, Non-Tender, Full Range of Motion Respiratory/Chest: No Respiratory Distress, Lungs Clear, Normal Breath Sounds Cardiovascular: Regular Rate, Rhythm, No Edema, No Murmur Extremities: Other (Examination of his right shoulder shows really good range of motion no neurovascular abnormalities in the right arm or hand. Palpation of the shoulder is really nontender except over the before meals joint and this is where his pump is with distraction of the arm there is no crepitation or distraction of the before meals joint.) Course - Vital Signs Last Recorded V/S: Last Vital Signs Temp 36.7 C 05/03/17 02:33 Pulse 71 05/03/17 02:33 Resp 16 05/03/17 02:33 BP 142/98 H 05/03/17 02:33 Pulse Ox 98 05/03/17 02:33 - Orders/Labs/Meds Orders: Active Orders 24 hr Category Date Time Status Shoulder Comp Rt [CR] Stat Exams 05/03/17 02:49 Taken - Re-Assessments/Exams Free Text/Narrative Re-Assessment/Exam: 05/03/17 03:40 X-ray of the shoulder is negative for acute changes. Discussed the findings of the x-rays with the patient and he is assured with this. He does not think he needs a sling for comfort Departure - Departure Time of Disposition: 03:40 Disposition: Home, Self-Care 01 Clinical Impression: Contusion of right shoulder - Discharge Information Forms: ED Department Discharge Additional Instructions: Return to the emergency room with any questions problems or worsening symptoms. Follow-up with your regular provider as needed. - My Orders Last 24 Hours: My Active Orders 05/03/17 02:49 Shoulder Comp Rt [CR] Stat - Assessment/Plan Last 24 Hours: My Active Orders 05/03/17 02:49 Shoulder Comp Rt [CR] Stat
--- NOTE | 2017-05-03 07:09 | CR ---
Right shoulder: Three views of the right shoulder were obtained. Comparison: No previous right shoulder study. Glenohumeral joint and acromioclavicular joint appear within normal limits. No fracture, dislocation or other bony abnormality is seen. Impression: 1. No abnormality is identified on three-view right shoulder study. Diagnostic code #1
== END 2017-05-03 03:43 | disposition home or self-care (01) ==
LOC: JD.ED 02:29
DX: S40.011A Contusion of right shoulder, initial encounter (principal); Z79.82 Long term (current) use of aspirin; E11.9 Type 2 diabetes mellitus without complications; F17.210 Nicotine dependence, cigarettes, uncomplicated; Z79.84 Long term (current) use of oral hypoglycemic drugs; Z79.899 Other long term (current) drug therapy; W01.0XXA Fall on same level from slipping, tripping and stumbling without subsequent striking against object, initial encounter
CPT/HCPCS: 73030-26-RT; 73030-RT; 99283

== ENCOUNTER 2024-10-15 15:02 | Emergency (ER) | payer OTHER ==
[2024-10-15 15:16] VITALS: BP 128/114; PULSE 116
[2024-10-15] MEDS ORDERED: Sodium Chloride 0.9% 10 ML Syringe FLUSH PRN (15:20)
[2024-10-15 16:00] LABS: BASOPHILS ABSOLUTE AUTO 0.1 K/mm3 (0.0-0.2); BASOPHILS PERCENT AUTO 0.9 % (0.0-1.0); EOSINOPHILS ABSOLUTE AUTO 2.1 K/mm3 (0.0-0.4); EOSINOPHILS PERCENT AUTO 15.1 % (0.0-6.0); HEMATOCRIT 43.4 % (42.0-52.0); HEMOGLOBIN 14.8 gm/dl (14.0-18.0); IMMATURE GRAN ABSOLUTE AUTO 0.06 K/mm3 (0.00-0.05); IMMATURE GRAN PERCENT AUTO 0.4 % (0.0-0.4); LYMPHOCYTES ABSOLUTE AUTO 1.5 K/mm3 (1.0-4.8); LYMPHOCYTES PERCENT AUTO 11.2 % (24.0-44.0); MEAN CORPUSCULAR HEMOGLOBIN 26.9 pg (28.0-32.0); MEAN CORPUSCULAR HGB CONC 34.1 g/dl (32.0-36.0); MEAN CORPUSCULAR VOLUME 78.9 fl (83.0-99.0); MEAN PLATELET VOLUME 8.7 fl (9.4-12.4); MONOCYTES ABSOLUTE AUTO 1.2 K/mm3 (0.0-0.8); MONOCYTES PERCENT AUTO 8.7 % (0.0-8.0); NEUTROPHILS ABSOLUTE AUTO 8.8 K/mm3 (1.8-7.7); NEUTROPHILS PERCENT AUTO 63.7 % (41.0-71.0); PLATELET COUNT,PLT 338 K/mm3 (150-400); WHITE BLOOD CELL COUNT,WBC 13.81 K/mm3 (3.9-11.3)
[2024-10-15 16:29] LABS: ALANINE AMINOTRANSFERASE,ALT 18 U/L (16-63); ALBUMIN 3.8 g/dl (3.4-5.0); ALKALINE PHOSPHATASE 151 U/L (46-116); ANION GAP 13.5 (5-15); ASPARTATE AMNIOTRANSFERASE,AST 11 U/L (15-37); BILIRUBIN TOTAL 0.4 mg/dL (0.2-1.0); BLOOD UREA NITROGEN,BUN 23 mg/dL (7-18); CALCIUM 9.4 mg/dL (8.5-10.1); CARBON DIOXIDE,CO2 27 mEq/L (21-32); CHLORIDE,CL 100 mEq/L (98-107); ESTIMATED GFR 85 mL/min (>60); GLUCOSE RANDOM 150 mg/dL (70-99); MAGNESIUM 1.7 mg/dL (1.8-2.4); POTASSIUM,K 3.5 mEq/L (3.5-5.1); PROTEIN TOTAL,TP 7.8 g/dl (6.4-8.2); SODIUM,NA 137 mEq/L (136-145); TSH 1.428 uIU/mL (0.358-3.74)
[2024-10-15 17:12] LABS: APPEARANCE,URINE CLEAR (Clear); BILIRUBIN,URINE NEGATIVE (Negative); COLOR,URINE YELLOW (Yellow); GLUCOSE,URINE 2+ (Negative); KETONES,URINE NEGATIVE (Negative); LEUKOCYTE ESTERASE,URINE NEGATIVE (Negative); NITRITE,URINE NEGATIVE (Negative); OCCULT BLOOD,URINE NEGATIVE (Negative); PROTEIN,URINE NEGATIVE (Negative); UROBILINOGEN,URINE 0.2 (0.2-1.0)
[2024-10-15 17:19] LABS: BARBITURATE SCREEN,URINE NEGATIVE (CUTOFF=200); BENZODIAZEPINES SCREEN,URINE NEGATIVE (CUTOFF=150); BUPRENORPHINE SCREEN,URINE NEGATIVE (CUTOFF=10); METHADONE SCREEN, URINE NEGATIVE (CUT0FF=200); METHAMPHETAMINES SCREEN, URINE NEGATIVE (CUTOFF=500); OXYCODONE SCREEN,URINE NEGATIVE (CUT0FF=100); THC SCREEN,URINE 20 NG/ML NEGATIVE (CUTOFF=50)
[2024-10-15 17:22] LABS: AMPHETAMINES SCREEN, URINE NEGATIVE (CUTOFF=500)
[2024-10-15 17:24] LABS: SLIDE REVIEW ABNORMAL SMEAR
[2024-10-15] MEDS: diphenhydrAMINE 50 MG/ML SDV IM ONE (17:51)
[2024-10-15] MEDS: Haloperidol Lactate 5 MG/ML SDV IM ONE (17:52)
[2024-10-15] MEDS: LORazepam 2 MG/ML SDV IM ONE (17:52)
== END 2024-10-15 21:20 | disposition home or self-care (01) ==
LOC: JD.ED 15:02
DX: F41.9 Anxiety disorder, unspecified (principal); R25.1 Tremor, unspecified; E11.9 Type 2 diabetes mellitus without complications; F17.210 Nicotine dependence, cigarettes, uncomplicated; Z79.82 Long term (current) use of aspirin; Z79.84 Long term (current) use of oral hypoglycemic drugs; Z79.899 Other long term (current) drug therapy
CPT/HCPCS: 36415; 70450; 70450-26; 71045; 71045-26; 80053; 80306; 80307; 81003; 83735; 84443; 85025; 87428-QW; 93005; 96372; 99285; J1200; J1630; J2060